=== PATIENT | male | born 1975 | race Caucasian/White ===

== ENCOUNTER → 2021-01-29 | Outpatient (REF) ==
[~2021-01-29] MED LIST: HYDR1TAB PO
--- NOTE | 2021-01-29 13:46 | Diagnostic Imaging Report ---
INDICATION: Right knee pain AP, oblique, and lateral views of the right knee are obtained. No fracture or acute bony abnormality is seen. There is superior patellar spurring. There is no significant joint space narrowing. There appears to be a small joint effusion. IMPRESSION: Apparent small right knee joint effusion with superior patellar spurring. No acute fracture or significant joint space narrowing. Dictated by: Dictated on workstation # [id number]
== END ==
LOC: OCC 11:53
PROVIDERS: ATTEND Family Medicine
DX: M25.461 Effusion, right knee (principal); M25.761 Osteophyte, right knee
CPT/HCPCS: 73562